=== PATIENT | female | born 1960 | race Two or more races ===

== ENCOUNTER 2024-09-27 07:01 | Inpatient (IN) | payer BC, OTHER ==
[~2024-09-27] VITALS: Ht 149.9 cm; Wt 56.8 kg
[2024-09-27] MEDS: MORPHINE SULFATE 4 MG/ML SYR/VIAL IV ONE ×2 (07:45→10:33)
[2024-09-27] MEDS: ONDANSETRON HCL 4 MG/2 ML VIAL IV ONE (07:45)
--- NOTE | 2024-09-27 07:54 | ED.PDOC ---
History of Present Illness HPI Comments 64-year-old female brought in by EMS presents with a chief complaint of right leg pain s/p mechanical fall. Patient states that she had a mechanical fall x 4 days ago and has been sitting on her couch since, patient thought that the pain would subside. Patient is not able to bear weight on her leg/hip. Patient was given 100mcg of Fentanyl en route by EMS. Chief Complaint: Lower Extremity Time Seen by MD: 07:28 Primary Care Provider: UNKNOWN Reviewed Notes: Medications, Allergies Allergies: Coded Allergies: Cephalexin (Verified Allergy, Mild, 09/27/24) Sulfa Antibiotics (Verified Allergy, Mild, 09/27/24) Information Source: Patient, Emergency Med Personnel Mode of Arrival: EMS Severity: Moderate Timing: Days Duration: Since onset Prehospital treatment: Motor Expert, Pain Meds Past Medical History PAST MEDICAL HISTORY: Denies Surgical History: Denies all surgeries BEHAVIORAL ANALYST History: No Pertinent BEHAVIORAL ANALYST History Family History Family History: Reviewed,noncontributory to illness Social History Smoker: Non-Smoker Alcohol: Denies ETOH Use Drugs: Denies Drug Use Constitutional: denies: chills, diaphoresis, fatigue, fever, malaise, sweats, weakness, others EENTM: denies: blurred vision, double vision, ear bleeding, ear discharge, ear drainage, ear pain, ear ringing, eye pain, eye redness, hearing loss, mouth pain, mouth swelling, nasal discharge, nose bleeding, nose congestion, nose pain, photophobia, tearing, throat pain, throat swelling, voice changes, others Respiratory: denies: cough, hemoptysis, orthopnea, SOB at rest, shortness of breath, SOB with excertion, stridor, wheezing, others Cardiovascular: denies: chest pain, dizzy spells, diaphoresis, Dyspnea on exertion, edema, irregular heart beat, left arm pain, lightheadedness, palpitations, PND, syncope, others Gastrointestinal: denies: abdomen distended, abdominal pain, blood streaked bowels, constipated, diarrhea, dysphagia, difficulty swallowing, hematemesis, melena, nausea, poor appetite, poor fluid intake, rectal bleeding, rectal pain, vomiting, others Genitourinary: denies: abnormal vagina bleeding, burning, dyspareunia, dysuria, flank pain, frequency, hematuria, incontinence, pain, , vagina discharge, urgency, others Neurological: denies: dizziness, fainting, headache, left sided numbness, left sided weakness, numbness, paresthesia, pre-existing deficit, right sided numbness, right sided weakness, seizure, speech problems, tingling, tremors, weakness, others Musculoskeletal: reports: joint pain, muscle pain; denies: back pain, gout, joint swelling, muscle stiffness, neck pain, others Integumetry: denies: bruises, change in color, change in hair/nails, dryness, laceration, lesions, lumps, rash, wounds, others Allergic/Immunocompromised: denies: Difficulty Healing, Frequent Infections, Hives, Itching, others Hematologic/Lymphatic: denies: anemia, blood clots, easy bleeding, easy bruising, swollen glands, others Endocrine: denies: excessive hunger, excessive sweating, excessive thirst, excessive urination, flushing, intolerance to cold, intolerance to heat, unexplained weight gain, unexplained weight loss, others Psychiatric: denies: anxiety, bipolar disorder, depression, hopeless, panic disorder, schizophrenia, sleepless, suicidal, others All Other Systems: Reviewed and Negative Physical Exam General Appearance: No Apparent Distress, Normal HEENT: Normal ENT Inspection, Pharynx Normal, TMs Normal Neck: Full Range of Motion, Non-Tender, Normal, Normal Inspection Respiratory: Chest Non-Tender, Lungs Clear, No Accessory Muscle Use, No Respiratory Distress, Normal Breath Sounds Cardiovascular: No Edema, No JVD, No Murmur, No Gallop, Normal Peripheral Pulses, Regular Rate/Rhythm Breast Exam: Deferred Gastrointestinal: No Organomegaly, Non Tender, No Pulsatile Mass, Normal Bowel Sounds, Soft Genitalia: Deferred Pelvic: Deferred Rectal: Deferred Extremities: No calf tenderness, Normal capillary refill, Normal inspection, Normal range of motion, Non-tender, No pedal edema Musculoskeletal : Apperance: Normal Neurologic: Alert, control systems eng II-XII nml as Tested, No Motor Deficits, Normal Affect, Normal Mood, No Sensory Deficits Cerebellar Function: Normal Reflexes: Normal Skin: Dry, Normal Color, Warm Lymphatic: No Adenopathy Was a procedure done? Was a procedure done?: No Differential Dx Considerations may include: Right femur fracture right to fib fracture X-Ray, Labs, Meds, VS Vital Signs Date Time Temp Pulse Resp B/P (MAP) Pulse Ox O2 Delivery O2 Flow Rate FiO2 09/27/24 07:45 67 20 167/63 09/27/24 07:19 99.9 88 14 149/90 (109) 100 99.9 Current Medications Medications (Trade) Dose Ordered Sig/Nerissa Route Start Time Stop Time Status Last Admin Morphine Sulfate 4 mg ONCE ONCE IV 09/27/24 07:45 09/27/24 07:46 DC 09/27/24 07:45 Ondansetron HCl (Zofran) 4 mg ONCE ONCE IV 09/27/24 07:45 09/27/24 07:46 DC 09/27/24 07:45 Time of 1ST Reevaluation: 07:58 Reevaluation 1ST: Unchanged Patient Education/Counseling: Diagnosis, Treatment, Need For Follow Up Family Education/Counseling: No Family Present Departure 1 Departure Time of Disposition: 09:45 (Patient found to have a right femur fracture. We will consult Orthopedics and admit for expert consultation.) Impression: Primary Impression: Right femoral fracture Qualified Codes: S72.24XA - Nondisplaced subtrochanteric fracture of right femur, initial encounter for closed fracture Disposition: ADMITTED INPATIENT Admit to: Med Surg Condition: Serious Critical Care Note Critical Care Time?: No Stability Stability form required: No Heart Score Heart Score: Heart Score Response (Comments) Value History N/A 0 EKG N/A 0 Age N/A 0 Risk Factors N/A 0 Troponin N/A 0 Total 0 I personally scribed for ARTURO ZAMORA MD ([email or web address]) on 09/27/24 at 07:54. Electronically submitted by Jerrod Seo ([email or web address]). ARTURO ZAMORA MD Sep 27, 2024 07:54
--- NOTE | 2024-09-27 09:29 | DVH ---
CLINICAL INDICATION: fall, trauma, pain TECHNIQUE: XY R FEMUR XRAY, XY PELVIS AP Comparison: None FINDINGS/IMPRESSION: : Minimally displaced right proximal femoral intertrochanteric fracture. Severe degenerative changes of bilateral hips.
--- NOTE | 2024-09-27 09:37 | DVH ---
PROCEDURE: Right tibia/fibula radiographs. INDICATION: Fall TECHNIQUE: 3 views of the right tibia/fibula were obtained. COMPARISON: None FINDINGS: There is no evidence of fracture or dislocation. Joint spaces are maintained. The soft tis sues are unremarkable. IMPRESSION: 1. No fracture or dislocation.
[2024-09-27 10:26] LABS: Basophils # (auto) 0.1 10 ^3/uL (0-0.2); Eosinophils # (auto) 0.2 10 ^3/uL (0-0.8); Eosinophils % (auto) 2.5 % (0.0-7.0); Hematocrit 39.5 % (36.0-46.0); Hemoglobin 13.6 g/dL (12.2-16.2); Lymphocytes # (auto) 1.4 10 ^3/uL (0.4-5.4); Lymphocytes % (auto) 20.7 % (10.0-50.0); Mean Corpuscular Hemoglobin 33.3 pg (28.0-32.0); Mean Corpuscular Hgb Conc. 34.4 g/dL (32.0-36.0); Mean Corpuscular Volume 96.9 fL (80.0-100.0); Monocytes # (auto) 0.4 10 ^3/uL (0-1.3); Monocytes % (auto) 5.9 % (0.0-12.0); Neutrophils # (auto) 4.6 10 ^3/uL (1.6-8.6); Neutrophils % (auto) 69.9 % (37.0-80.0); Platelet Count (auto) 434 10^3/uL (140-450); Red Blood Cells 4.07 10^6/uL (4.0-5.20); Red Cell Distribution Width 14.1 % (11.8-14.3); White Blood Cell 6.5 10^3/uL (4.4-10.8)
[2024-09-27 10:35] LABS: Sodium 143 mmol/L (136-145)
[2024-09-27 10:36] LABS: Anion Gap 9 (5-15); Calcium 9.5 mg/dL (8.7-10.4); Carbon Dioxide 26 mmol/L (20-31)
--- NOTE | 2024-09-27 10:40 | DVH ---
CHEST RADIOGRAPH Indication: Pain Technique: Single frontal view of the chest was obtained COMPARISON: None FINDINGS: Lines and Tubes: None Lungs: Clear Pleura: No effusion. No pneumothorax. Cardiomediastinal contours: Unremarkable Bones: Multiple chronic left rib fractures. IMPRESSION: No acute disease.
[2024-09-27 10:41] LABS: BUN/Creatinine Ratio 17.3 (10.0-20.0); Blood Urea Nitrogen 9 mg/dL (9-23); Chloride 108 mmol/L (98-107); Glucose 92 mg/dL (74-106); Potassium 3.2 mmol/L (3.5-5.1)
[2024-09-27 10:44] LABS: Partial Thromboplastin Time 29.6 SEC (24.5-34.5); Prothrombin Time 10.6 sec (9.3-11.8)
[2024-09-27] MEDS ORDERED: NITROGLYCERIN 0.4 MG SL TAB SL PRN (10:45)
[2024-09-27] MEDS ORDERED: MORPHINE SULFATE INJ 2 MG/ml SYRG IV PRN (10:45)
[2024-09-27] MEDS ORDERED: ACETAMINOPHEN 325 MG TAB PO PRN (10:45)
--- NOTE | 2024-09-27 11:02 | DVHHP2 ---
Admitting Diagnosis: Right Intertrochanteric Fracture History of Present Illness HPI Patient is 64F with PMH of tobacco dependence, oxygen use at bedtime, COPD, HTN who presents due to right hip pain after a fall 4 days prior. Patient did not seek medical attention at the time thinking her "pain would go away." She presents today due to persistent pain. Xray imaging notes right intertrochanteric fracture. Patient admitted for orthopedic evaluation. Past Medical History Cardiac: HTN Pulmonary: COPD Review of Systems Constitutional: No symptom reported Pulmonary/Respiratory: No symptom reported Cardiovascular: No symptom reported Gastrointestinal: No symptom reported H&P Exam Vital Signs Vital Signs Date Time Temp Pulse Resp B/P (MAP) Pulse Ox O2 Delivery O2 Flow Rate FiO2 09/27/24 07:45 67 20 167/63 09/27/24 07:19 99.9 100 99.9 General Appeara: Well developed Pulmonary/Respiratory: Normal inspection, Normal breath sounds Cardiovascular/Chest: Normal inspection, Regular rate Hip exam: Asymmetry Labs/Xrays Labs Test 09/27/24 09:57 Range/Units White Blood Count 6.5 4.4-10.8 10^3/uL Red Blood Count 4.07 4.0-5.20 10^6/uL Hemoglobin 13.6 12.2-16.2 g/dL Hematocrit 39.5 36.0-46.0 % Mean Corpuscular Volume 96.9 80.0-100.0 fL Mean Corpuscular Hemoglobin 33.3 H 28.0-32.0 pg Mean Corpuscular Hemoglobin Concent 34.4 32.0-36.0 g/dL Red Cell Distribution Width 14.1 11.8-14.3 % Platelet Count 434 140-450 10^3/uL Mean Platelet Volume 7.5 6.9-10.8 fL Neutrophils (%) (Auto) 69.9 37.0-80.0 % Lymphocytes (%) (Auto) 20.7 10.0-50.0 % Monocytes (%) (Auto) 5.9 0.0-12.0 % Eosinophils (%) (Auto) 2.5 0.0-7.0 % Basophils (%) (Auto) 1.0 0.0-2.0 % Neutrophils # (Auto) 4.6 1.6-8.6 10 ^3/uL Lymphocytes # (Auto) 1.4 0.4-5.4 10 ^3/uL Monocytes # (Auto) 0.4 0-1.3 10 ^3/uL Eosinophils # (Auto) 0.2 0-0.8 10 ^3/uL Basophils # (Auto) 0.1 0-0.2 10 ^3/uL Nucleated Red Blood Cells 0.0 % Prothrombin Time 10.6 9.3-11.8 sec Prothrombin Time INR 1.00 0.9-1.15 Activated Partial Thromboplast Time 29.6 24.5-34.5 SEC Sodium Level 143 136-145 mmol/L Potassium Level 3.2 L 3.5-5.1 mmol/L Chloride Level 108 H 98-107 mmol/L Carbon Dioxide Level 26 20-31 mmol/L Anion Gap 9 5-15 Blood Urea Nitrogen 9 9-23 mg/dL Creatinine 0.52 L 0.550-1.02 mg/dL Glomerular Filtration Rate Calc 102 >90 mL/min BUN/Creatinine Ratio 17.3 10.0-20.0 Serum Glucose 92 74-106 mg/dL Calcium Level 9.5 8.7-10.4 mg/dL Assessment/Plan Primary Diagnosis 1. Right Intertrochanteric Fracture 2' Diagnosis/Co-morbidities 2. History of COPD 3. Chronic Oxygen Dependence Plan -Admit to med surg -Orthopedics consulted, Dr. Mckeon -Pain medications as listed in MAR -NPO pending possible ORIF today -Nasal cannula with goal pulse ox>90% -Electrolytes repleted -Full Code Plan discussed with: Patient SILVIA FARR Sep 27, 2024 11:02
[2024-09-27] MEDS: POTASSIUM EFFERVESENT TAB 25 MEQ PO ONE (11:50)
[2024-09-27] MEDS: ONDANSETRON HCL 4 MG/2 ML VIAL IV PRN (11:50)
[2024-09-27] MEDS: MORPHINE SULFATE INJ 2 MG/ml SYRG IV PRN (11:51)
[2024-09-27] MEDS: HYDROcodone-ACET 5/325MG TAB PO PRN (13:48)
--- NOTE | 2024-09-27 16:20 | DVHINCON2 ---
Date Seen: Sep 27, 2024 Referring Physician TONY Tomlinson Reason for Consultation Pre-op History of Present Illness This is a 64-year-old female who presented to the emergency room via EMS with a chief complaint of right lower extremity pain. The patient reports a mechanical fall injury where she tripped and fell over a branch when she was feeding her dog and landing onto her right side four days ago. She has been diagnosed with a right femur fracture with orthopedic team requesting a cardiac risk stratification prior to surgical intervention. The patient denies any chest pain, palpitations, SOB, dizziness, or syncopal events. States she is functional and able to ambulate without assistance. Denies exertional angina or dyspnea on exertion. Reports a history of a myocardial infarction at 23 y.o. without any invasive cardiac work-up but advised to decrease stress levels. She does not follow-up with a geological engineering teacher. Significant medical history includes hypertension, peripheral neuropathy, dyslipidemia, unspecified arthritis, COPD with oxygen dependence, and sciatica. Past Medical History Past medical history reviewed. No other significant than mentioned above. Past Surgical History Tonsillectomy Cholecystectomy Bilateral toes, unspecified Exploratory abdominal surgery Family History Family history reviewed. Not significant for CV disease. Social History Denies the use of illicit drugs, alcohol, or tobacco use. Allergies: Coded Allergies: Cephalexin (Verified Allergy, Mild, 09/27/24) Sulfa Antibiotics (Verified Allergy, Mild, 09/27/24) Home Meds Reported Medications Gabapentin (Gabapentin) 300 Mg Cap, 1 CAP PO TID 09/28/24 Carvedilol (Carvedilol) 3.125 Mg Tab, 1 TAB PO BID 09/28/24 Home Meds Home medications reviewed. Current Medications Current Medications Medications (Trade) Dose Ordered Sig/Nerissa Route PRN Reason Start Time Stop Time Status Last Admin Acetaminophen (Tylenol Tablet) 325 mg Q4HP PRN PO MILD PAIN (1-3 PAIN SCALE) 09/27/24 10:45 Acetaminophen/ Hydrocodone Bitart ([place] 5/325MG Tab) 1 tab Q4HP PRN PO MODERATE PAIN (4-6 PAIN SCALE) 09/27/24 10:45 09/27/24 13:48 Temazepam (Restoril) 15 mg QHSP PRN PO FOR INSOMNIA 09/27/24 10:45 Ondansetron HCl (Zofran) 4 mg Q4HP PRN IV NAUSEA / VOMITING 09/27/24 10:45 09/27/24 11:50 Morphine Sulfate 2 mg Q4HPRN PRN IV SEVERE PAIN (7-10 PAIN SCALE) 09/27/24 10:45 09/27/24 11:51 Nitroglycerin (Ntrostat Sublingual) 0.4 mg Q5MINP PRN SL FOR CHEST PAIN 09/27/24 10:45 Morphine Sulfate 2 mg Q30M PRN IV FOR CHEST PAIN 09/27/24 10:45 Review of Systems Constitutional: No symptom reported Ears, Nose, & Throat: No symptom reported Eyes: No symptom reported Neurological: No symptoms reported Pulmonary/Respiratory: No symptom reported Cardiovascular: No symptom reported Gastrointestinal: No symptom reported Genitourinary: No symptom reported Musculoskeletal: RLE pain Skin: No symptom reported Psychiatric: No symptom reported Endocrine: No symptom reported Hemotologic/Lymphatic: No symptom reported Vital Signs Vital Signs Date Time Temp Pulse Resp B/P (MAP) Pulse Ox O2 Delivery O2 Flow Rate FiO2 09/27/24 13:49 97.7 79 18 164/66 (98) 99 97.7 09/27/24 12:07 Nasal Cannula* 2 28 Physical Exam General Appearance: Cooperative. Well developed. Well nourished. In no acute distress Head Exam: Normal inspection Neck Exam: Normal inspection. Non-tender. Normal alignment Pulmonary/Respiratory: Chest non-tender. Clear bilateral breath sounds Cardiovascular/Chest: Regular rate and rhythm. S1, S2. NSR. No murmurs. No JVD. Peripheral Pulses: 2+ Radial (R). 2+ Radial (L). 2+ Pedal (R). 2+ Pedal (L) Abdominal Exam: Normal bowel sounds. Soft. Nontender. No hepatospenomegaly. No masses Ankle Exam: Negative ankle edema Lower extremities: Negative lower extremity edema. Right lower extremity shortening and external rotation Neuro/Mental Status: A&O x4. Coherent Thoughts/Psych: Normal thought pattern. Crying in pain Appearance: In no acute distress Skin Exam: Normal inspection. Normal color. Warm. Dry Labs/Diagnostic Data Labs Test 09/27/24 09:57 Range/Units White Blood Count 6.5 4.4-10.8 10^3/uL Red Blood Count 4.07 4.0-5.20 10^6/uL Hemoglobin 13.6 12.2-16.2 g/dL Hematocrit 39.5 36.0-46.0 % Mean Corpuscular Volume 96.9 80.0-100.0 fL Mean Corpuscular Hemoglobin 33.3 H 28.0-32.0 pg Mean Corpuscular Hemoglobin Concent 34.4 32.0-36.0 g/dL Red Cell Distribution Width 14.1 11.8-14.3 % Platelet Count 434 140-450 10^3/uL Mean Platelet Volume 7.5 6.9-10.8 fL Neutrophils (%) (Auto) 69.9 37.0-80.0 % Lymphocytes (%) (Auto) 20.7 10.0-50.0 % Monocytes (%) (Auto) 5.9 0.0-12.0 % Eosinophils (%) (Auto) 2.5 0.0-7.0 % Basophils (%) (Auto) 1.0 0.0-2.0 % Neutrophils # (Auto) 4.6 1.6-8.6 10 ^3/uL Lymphocytes # (Auto) 1.4 0.4-5.4 10 ^3/uL Monocytes # (Auto) 0.4 0-1.3 10 ^3/uL Eosinophils # (Auto) 0.2 0-0.8 10 ^3/uL Basophils # (Auto) 0.1 0-0.2 10 ^3/uL Nucleated Red Blood Cells 0.0 % Prothrombin Time 10.6 9.3-11.8 sec Prothrombin Time INR 1.00 0.9-1.15 Activated Partial Thromboplast Time 29.6 24.5-34.5 SEC Sodium Level 143 136-145 mmol/L Potassium Level 3.2 L 3.5-5.1 mmol/L Chloride Level 108 H 98-107 mmol/L Carbon Dioxide Level 26 20-31 mmol/L Anion Gap 9 5-15 Blood Urea Nitrogen 9 9-23 mg/dL Creatinine 0.52 L 0.550-1.02 mg/dL Glomerular Filtration Rate Calc 102 >90 mL/min BUN/Creatinine Ratio 17.3 10.0-20.0 Serum Glucose 92 74-106 mg/dL Calcium Level 9.5 8.7-10.4 mg/dL Assessment Preprocedural cardiovascular examination Right intertrochanteric fracture COPD with oxygen dependence Hypertension Dyslipidemia Thyroid disease Hypokalemia Plan/Recommendation (Dr. Campbell) Preliminary echocardiogram revealed an EF of 55-60% without evidence of aortic or mitral valve stenosis. Revised cardiac risk index (Alexandr criteria): Class I at 3.9% risk of , PR, or cardiac arrest. Patient has no underlying history of congestive heart failure, coronary artery disease, and has an optimal functional capacity. Per Cardiology standpoint, the patient is at an acceptable-risk for moderate-risk surgery. There is no additional cardiac workup indicated prior to surgery. Thank you for allowing us to care for this patient. Please call with any questions or concerns. This medical document was created using an electronic medical record system with voice recognition software and computerized dictation system. Although this document has been carefully reviewed, there might still be some phonetic and typographical errors. Occasional wrong-word or ``sound-alike substitutions may have occurred due to the inherent limitations of voice recognition software. These areas are purely typographical due to imperfections of the software programs and do not reflect any compromise in the patient's medical care. Please read the chart carefully and recognize, using context, where these substitutions have occurred. Plan discussed with: Patient, Other NYHA Physical activity limitations: NA Date of Service: Sep 27, 2024 Billing Provider: SANTIAGO CHRISTOPHER Cardiology Common Codes: 57647-[id number] INP/OBS CARE (High) SANTIAGO CHRISTOPHER Sep 27, 2024 16:20
--- NOTE | 2024-09-27 17:55 | ECG ---
[facility] Test Date: 2024-09-27 Test Time: 17:54:13 Pat Name: REA HINDS Department: ED Room: 0280 Gender: F Acoustic Warfare Analyst: ROSE MARIE : 1960 Requested By: ARTURO ZAMORA Order Number: [id number] Reading MD: Roderick Barr Measurements Intervals [place] Rate: 58 P: 86 NH: 143 QRS: 71 QRSD: 109 T: 73 QT: 461 QTc: 453 Interpretive Statements Sinus rhythm Probable left atrial enlargement Nonspecific T abnrm, anterolateral leads Minimal ST elevation, lateral leads Artifact in lead(s) I,II,aVR,aVL,aVF Electronically Signed On 09-28-2024 17:42:05 PDT by Roderick Barr Please click the below link to view image of tracing.
--- NOTE | 2024-09-27 18:12 | DVHINCON2 ---
Consult Note Consult Consult Note Referring Physician: ER Physician Reason for Consult: Right hip pain post-fall concern for fracture --- HISTORY OF PRESENT ILLNESS: The patient is an 64-year-old female who presented to the emergency department after a ground-level fall onto her right side. She reports inability to bear weight on the right leg since the incident. No head trauma, loss of consciousness, or other injuries were reported. X-rays obtained in the ER revealed a non-displaced right intertrochanteric femur fracture. Orthopedic service was consulted for further management. --- PAST MEDICAL HISTORY: Myocardial infarction (CT) Chronic obstructive pulmonary disease (COPD) Asthma Tobacco use: ~5 cigarettes/day --- PHYSICAL EXAMINATION: General: Alert and oriented x3, appears in mild distress due to pain Right Hip: Tenderness over the greater trochanter and right groin No active range of motion due to pain No shortening or external rotation noted Neurovascular: Distal pulses palpable, capillary refill <2 sec, sensation intact distally Other Joints: No additional pain or deformity noted --- IMAGING: X-ray: Non-displaced right intertrochanteric femur fracture --- PLAN: Proceed with surgical management: Open reduction and internal fixation (ORIF) with cephalomedullary nail ([employer] system planned) NPO after midnight Admit to hospital and coordinate with: Medical team for pre-op optimization Cardiology for surgical clearance due to cardiac history Consent for procedure obtained today [employer] retail field representative contacted for implant availability Patient counseled extensively about: Surgical plan Potential risks: infection, bleeding, DVT, implant failure, anesthesia risks Expected postoperative course --- DISPOSITION: Patient to be admited under hospitalist for surgery tommorow,Surgery scheduled for tomorrow afternoon with Dr. Villafuerte Plan discussed with: Patient, Other (bedside nurse) Visit Coding Surgery Date of Service if different f: Sep 27, 2024 Billing Provider: HANNAH CRANE Surgery Visit Codes: 01138 - INP CONSULT <55 MIN HANNAH CRANE Sep 27, 2024 18:12
[2024-09-28] MEDS: TEMAZEPAM 15 MG CAP PO PRN (00:41)
[2024-09-28 03:31] VITALS: BP 172/74; PULSE 74; RESP 19; TEMP 96.2; O2SAT 74
[2024-09-28 05:00] VITALS: BP 179/103; PULSE 85; RESP 19; TEMP 96.6; O2SAT 94
[2024-09-28] MEDS ORDERED: GABA-1250 PO (05:57)
[2024-09-28] MEDS ORDERED: CARV3.1240 PO (05:57)
[2024-09-28 08:20] VITALS: BP 149/72; PULSE 97; RESP 19; TEMP 98.1; O2SAT 94
--- NOTE | 2024-09-28 11:41 | DVHPN2 ---
Progress Note - Dictate Date Seen: Sep 28, 2024 Medical Necessity Reason Pt with a Central, PICC or Fol: No Subjective Patient's pain controlled vital signs Vital Sign Date Time Temp Pulse Resp B/P (MAP) Pulse Ox O2 Delivery O2 Flow Rate FiO2 09/28/24 09:10 97 19 149/72 09/28/24 08:20 98.1 94 98.1 09/28/24 04:18 Nasal Cannula* 2 28 Total Intake and Output 09/27/24 09/27/24 09/28/24 15:00 23:00 07:00 Intake Total 0 ml Output Total 1300 ml Balance -1300 ml medications Current Medications Medications Dose Ordered Sig/Nerissa Route Start Time Stop Time Status Last Admin Dose Admin Acetaminophen 325 mg Q4HP PRN PO 09/27/24 10:45 Acetaminophen/ Hydrocodone Bitart 1 tab Q4HP PRN PO 09/27/24 10:45 09/27/24 19:54 1 TAB Temazepam 15 mg QHSP PRN PO 09/27/24 10:45 09/28/24 00:41 15 MG Ondansetron HCl 4 mg Q4HP PRN IV 09/27/24 10:45 09/27/24 16:06 4 MG Morphine Sulfate 2 mg Q4HPRN PRN IV 09/27/24 10:45 09/28/24 09:10 2 MG Nitroglycerin 0.4 mg Q5MINP PRN SL 09/27/24 10:45 Morphine Sulfate 2 mg Q30M PRN IV 09/27/24 10:45 objective General appearance: No acute distress Respiratory: Lungs clear to auscultation. No wheezing, crackles Cardiovascular: Regular rate and rhythm, no murmurs. No edema Abdomen: Soft, nondistended, nontender, bowel sounds present MSK: Shortened right leg Neuro: Alert, no neurological deficits Psych: Appropriate mood and affect. laboratory and microbiology Laboratory Tests 09/27/24 09:57 Test 09/27/24 09:57 Range/Units Serum Glucose 92 74-106 mg/dL Assessment/Plan 1. Right Intertrochanteric Fracture 2' Diagnosis/Co-morbidities 2. History of COPD 3. Chronic Oxygen Dependence Plan -Orthopedics consulted, Dr. Mckeon -Pain medications as listed in MAR -NPO pending ORIF today -Nasal cannula with goal pulse ox>90% -Cardiac clearance completed -SS consulted for SNF placement for PT -Electrolytes repleted -Full Code Plan discussed with: Patient CHIKASILVIA Bourgeois DO Sep 28, 2024 11:41
--- NOTE | 2024-09-28 12:15 | DVHSR ---
APPROVED REPORT EXAM: Two-dimensional and M-mode echocardiogram with Doppler and color Doppler. Blood Pressure: 160/63 mmHg INDICATION Pre-Op RISK FACTORS Height: 5'4", Weight: 150 DIMENSIONS LVDd4.7 (3.8-5.7cm)LA (2D)3.3 (1.9-4.0cm)Aortic Root2.7 (2.0-3.7cm) LVDs3.5 (2.5-4.0cm)LA (MM) (1.9-4.0cm)Aortic Cusp Exc1.6 (1.5-2.0cm) EF (%) 55.0 (55-70%)Rt. Atrium3.5 (1.9-4.0cm)Asc. Aorta cm IVSd0.8 (0.7-1.1cm)RV (D)3.4 (1.8-2.4cm) PWd0.9 (0.7-1.1cm) Mitral Valve MitralMitral Stenosis E wave0.75m/sMV Mean GR.mmHg A wave0.94m/sMV Peak GR.mmHg E/A ratio0.82D MVAcm2 DECEL [id number] 1/2 Timems Aortic Valve Aortic ValveAortic Stenosis V11.28m/Brenda Mean GR.3mmHg V21.20m/Brenda Peak GR.6mmHg LVOT Diameter1.8 (1.8-2.4cm)Doppler AVA2.71cm2 Pulmonic Valve V20.90m/s Other Information Technically limited study due to body habitus, patient lying flat. Conclusion lvef 65% normal RV function normal atria no severe valve abnormalities noted
[2024-09-28 12:39] VITALS: BP_SYST 158; BP_SYST 171; BP_DIAS 64; BP_DIAS 87; PULSE 65; RESP 16; TEMP 96.8; O2SAT 92
--- NOTE | 2024-09-28 13:56 | DVHDS2 ---
Discharge Summary Date of Admission Sep 27, 2024 at 10:41 Date of Discharge: Sep 29, 2024 Labs/Diagnostic Data: Laboratory Results Test 09/27/24 09:57 White Blood Count 6.5 10^3/uL (4.4-10.8) Red Blood Count 4.07 10^6/uL (4.0-5.20) Hemoglobin 13.6 g/dL (12.2-16.2) Hematocrit 39.5 % (36.0-46.0) Mean Corpuscular Volume 96.9 fL (80.0-100.0) Mean Corpuscular Hemoglobin 33.3 pg (28.0-32.0) Mean Corpuscular Hemoglobin Concent 34.4 g/dL (32.0-36.0) Red Cell Distribution Width 14.1 % (11.8-14.3) Platelet Count 434 10^3/uL (140-450) Mean Platelet Volume 7.5 fL (6.9-10.8) Neutrophils (%) (Auto) 69.9 % (37.0-80.0) Lymphocytes (%) (Auto) 20.7 % (10.0-50.0) Monocytes (%) (Auto) 5.9 % (0.0-12.0) Eosinophils (%) (Auto) 2.5 % (0.0-7.0) Basophils (%) (Auto) 1.0 % (0.0-2.0) Neutrophils # (Auto) 4.6 10 ^3/uL (1.6-8.6) Lymphocytes # (Auto) 1.4 10 ^3/uL (0.4-5.4) Monocytes # (Auto) 0.4 10 ^3/uL (0-1.3) Eosinophils # (Auto) 0.2 10 ^3/uL (0-0.8) Basophils # (Auto) 0.1 10 ^3/uL (0-0.2) Nucleated Red Blood Cells 0.0 % Prothrombin Time 10.6 sec (9.3-11.8) Prothrombin Time INR 1.00 (0.9-1.15) Activated Partial Thromboplast Time 29.6 SEC (24.5-34.5) Sodium Level 143 mmol/L (136-145) Potassium Level 3.2 mmol/L (3.5-5.1) Chloride Level 108 mmol/L (98-107) Carbon Dioxide Level 26 mmol/L (20-31) Anion Gap 9 (5-15) Blood Urea Nitrogen 9 mg/dL (9-23) Creatinine 0.52 mg/dL (0.550-1.02) Glomerular Filtration Rate Calc 102 mL/min (>90) BUN/Creatinine Ratio 17.3 (10.0-20.0) Serum Glucose 92 mg/dL (74-106) Calcium Level 9.5 mg/dL (8.7-10.4) Other Laboratory Tests 09/27/24 09:57 Brief Hx & Hospital Course: Patient is 64F with PMH of tobacco dependence, oxygen use at bedtime, COPD, HTN who presents due to right hip pain after a fall 4 days prior. Patient did not seek medical attention at the time thinking her "pain would go away." She presents today due to persistent pain. Xray imaging notes right intertrochanteric fracture. Patient admitted for orthopedic evaluation. Patient underwent ORIF of the right femoral neck. Patient was monitored overnight. She subsequently had physical therapy done. She was able to ambulate with minimal assist with walker. FWW ordered for the patient. Patient insisted on returning home Home health ordered with PT. Patient is to follow-up with orthopedic surgery in 10-14 days. She is cleared for DC by orthopedics. [facility] case management to arrange follow-up appointments. Condition at Discharge: Good Final Diagnosis/Problems List 1. Right Intertrochanteric Fracture Secondary Diagnosis: 2. COPD 3. Chronic Respiratory Failure on 2L Discharge Disposition: Home with Health Services Discharge Statement: "Patient was advised to return to the ER or call 911 if any headaches, dizziness, shortness of breath, chest pain, abdominal pain, bleeding, fevers, or worsening of medical condition. Patient was counseled about treatment plan, medications, possible side effects, patientverbalized understanding. All questions were answered to the best of my ability. This discharge took greater then 30 minutes in planning, reviewing documentation, counseling the patient, and discussing with other team members." ASSESSMENT ASSESSMENT Assessment SILVIA FARR DO Sep 28, 2024 13:56
--- NOTE | 2024-09-28 15:13 | ECG ---
[facility] Test Date: 2024-09-28 Test Time: 09:33:28 Pat Name: REA HINDS Department: Respiratoy Room: 0280 B Gender: F Station Supervisor: : [id number] Requested By: SANTIAGO CHRISTOPHER Order Number: [id number] Reading MD: Roderick Barr Measurements Intervals Superior Rate: 94 P: 80 CA: 132 QRS: 88 QRSD: 101 T: 87 QT: 426 QTc: 533 Interpretive Statements Sinus rhythm Borderline right axis deviation Nonspecific T abnrm, anterolateral leads Prolonged QT interval Electronically Signed On 09-28-2024 17:23:54 PDT by Roderick Barr Please click the below link to view image of tracing.
[2024-09-28] MEDS ORDERED: MIDAZOLAM HCL 2MG/2ML 2ml VIAL (1mg/ml) ONE ×2 (16:54→16:55)
[2024-09-28] MEDS ORDERED: PROPOFOL 10 MG/ML 20 ML IV ONE (16:54)
[2024-09-28] MEDS ORDERED: fentaNYL CITRATE 100 MCG/2 ML VL ONE (16:54)
[2024-09-28] MEDS ORDERED: KETAMINE 50mg/ML 1ml syringe ONE (16:54)
[2024-09-28] MEDS: ceFAZolin 1GM/50ML 100 ML IV ONE (17:00)
[2024-09-28] MEDS ORDERED: ESMOLOL HCL 10 ML IV ONE (17:12)
[2024-09-28 18:45] VITALS: PULSE 92; RESP 12; O2SAT 99
[2024-09-28] MEDS ORDERED: ONDANSETRON HCL 4 MG/2 ML VIAL IV PRN (18:45)
[2024-09-28] MEDS ORDERED: HYDROmorphone HCL 2 MG/ML VL/or syr IV PRN (18:45)
[2024-09-28] MEDS ORDERED: MORPHINE SULFATE 4 MG/ML SYR/VIAL IV PRN (18:45)
[2024-09-28] MEDS ORDERED: ePHEDrine SULFATE 50 MG/ML AMP IV PRN (18:45)
[2024-09-28] MEDS ORDERED: MORPHINE SULFATE INJ 2 MG/ml SYRG IV PRN (18:45)
[2024-09-28] MEDS ORDERED: MIDAZOLAM HCL 2MG/2ML 2ml VIAL (1mg/ml) IV PRN (18:45)
[2024-09-28] MEDS ORDERED: ACETAMINOPHEN 325 MG TAB PO PRN (18:45)
[2024-09-28] MEDS ORDERED: hydrALAZINE HCL 20 MG/ML VL IV PRN (18:45)
[2024-09-28] MEDS ORDERED: NITROGLYCERIN 0.4 MG SL TAB SL PRN (18:45)
[2024-09-28] MEDS: ONDANSETRON HCL 4 MG/2 ML VIAL IV ONE (19:08)
--- NOTE | 2024-09-28 19:55 | DVH ---
CLINICAL INDICATION: RT HIP TROCH NAIL TECHNIQUE: 18 radiographic views of the right hip were obtained. Comparison: None FINDINGS/IMPRESSION: 18 images of an open reduction internal fixation of a right hip fracture Total fluoro time 99.4 seconds .
--- NOTE | 2024-09-28 20:00 | DVH ---
C-ARM FLUOROSCOPY: PROCEDURE: ORIF of the femur FLUOROSCOPY TIME: 99.4 sec DAP: 11.35 mgy FINDINGS: Spot intraoperative C arm radiographs demonstrating ORIF of the femur. IMPRESSION: Please refer to surgical report for detailed findings.
--- NOTE | 2024-09-28 20:11 | DVHOP ---
DATE OF SURGERY: 09/28/2024 PREOPERATIVE DIAGNOSIS: Right hip intertrochanteric fracture. POSTOPERATIVE DIAGNOSIS: Right hip intertrochanteric fracture with subcapital extension. PROCEDURE PERFORMED: Right hip closed reduction and trochanteric nailing. ANESTHESIA: Spinal. ANESTHESIOLOGIST: Dr. Garcia. EXPERIMENTAL ROCKET SLED MECHANIC: Sandra Reich PA-C. BLOOD LOSS: 50 mL. COMPLICATIONS: None. IMPLANTS USED: Arthrex AOS cephalomedullary nail, 125 degrees, 9 mm with 85 mm cephalic screw and 34 mm distal screw. INDICATION FOR PROCEDURE: The patient presented to the Emergency Room with a hip fracture. Clinical and radiological evaluation demonstrated minimally displaced intertrochanteric fracture. Nonoperative and operative management options were discussed. Surgery in the form of closed versus open reduction of the intertrochanteric fracture with intramedullary nailing was discussed. Benefits, risks, and treatment alternatives were discussed. Specific complications of the surgery such as neurovascular injury, infection, arthrofibrosis, loss of limb or life were discussed. The patient decided to proceed with surgical options. PROCEDURE IN DETAIL: The patient was identified in the preoperative holding area and the surgical site was marked. The consent was verified. She was brought into the operating room and placed supine on the operating table. Spinal anesthesia was administered. She was then placed on the operating table. Her well leg was placed in a well leg novoa. The operative leg was placed in a boot and secured with a Coban. Gentle traction was applied and the C-arm was brought in to assess the quality of the reduction. Good reduction was noted. The hip was in slight varus. The extremity was prepped and draped in the usual sterile manner. A small incision was made over the greater trochanter and proximal to it after marking out the axis of the femur in both the AP and lateral planes. The IT band was incised. A self-retaining retractor was applied. Next, a guide pin was inserted from the tip of the trochanter down to the intramedullary canal. Next, a reamer was used to open up the trochanter. Next, AP and lateral images were obtained to confirm the trajectory of the reamer and the guide pin. This was found to be satisfactory. A nail was opened up and then inserted into the intramedullary canal. Excellent fit was noted and positioning was noted. Next, a guide pin was inserted from the lateral aspect of the trochanter into the neck and the head. This was adjusted as needed to try and be either center-center, AP and lateral, or slightly inferior and posterior. It was noted to be slightly inferior with a 125-degree angle and central on the lateral view. The depth was noted to be approximately 85 mm. A reamer was inserted. Next, the screw was inserted for excellent compression. Multiple images were obtained to confirm. The screw is not intraarticular and this was considered to be satisfactory. Oblique views were also obtained, 10-degree AP and 10-degree lateral to confirm the trajectory of the screw. Good compression was achieved with the proprietary system. The distal screw was also inserted. This was a bicortical screw. Excellent fixation was noted. AP and lateral views were obtained. Irrigation was given. The iliotibial band was closed with #2 Ethibond in a tzyesj-wk-nezje manner. The deep layer was closed with #0 Vicryl and 2-0 Vicryl and the skin was closed with kofi. A sterile dressing was applied. The patient was taken to the recovery after putting sterile dressing and transferring to her gurney. DISPOSITION: Good, the patient was extubated and taken to the recovery room. PLAN: The patient is medically sick and has COPD and unable to ambulate long distances. She can start weightbearing tomorrow, but will need a walker due to her severe rheumatoid arthritis and multiple deformities of the hand. I will transition her into independent walking in 4-6 weeks. MD ALONDRA Ya/SHANTANU TID: [id number] RECEIPT: [id number]
[2024-09-28 21:27] VITALS: BP 131/68; PULSE 89; RESP 14; TEMP 98.4; O2SAT 97
[2024-09-28] MEDS: LACTATED RINGER'S 1,000 ML IV SCH (21:38)
[2024-09-28] MEDS: DOCUSATE SOD 100 MG CAP PO SCH (22:00)
[2024-09-29] VITALS (8 sets, daily range): BP systolic 100–134; BP diastolic 59–67; PULSE 56–120; RESP 16–20; TEMP 97.9–98.3; O2SAT 94–100
[2024-09-29] MEDS: HYDROcodone-ACET 5/325MG TAB PO PRN (01:24)
[2024-09-29] MEDS: HYDROmorphone HCL 2 MG/ML VL/or syr IV PRN (03:56)
[2024-09-29] MEDS: HYDROcodone-ACET 10/325MG TAB PO PRN (06:25)
[2024-09-29 06:41] LABS: Basophils # (auto) 0 10 ^3/uL (0-0.2); Basophils % (auto) 0.1 % (0.0-2.0); Eosinophils # (auto) 0 10 ^3/uL (0-0.8); Hematocrit 37.7 % (36.0-46.0); Hemoglobin 12.7 g/dL (12.2-16.2); Lymphocytes # (auto) 0.5 10 ^3/uL (0.4-5.4); Lymphocytes % (auto) 4.4 % (10.0-50.0); Mean Corpuscular Hemoglobin 32.8 pg (28.0-32.0); Mean Corpuscular Hgb Conc. 33.8 g/dL (32.0-36.0); Monocytes # (auto) 0.2 10 ^3/uL (0-1.3); Monocytes % (auto) 2.1 % (0.0-12.0); Neutrophils # (auto) 10.5 10 ^3/uL (1.6-8.6); Neutrophils % (auto) 93.4 % (37.0-80.0); Platelet Count (auto) 433 10^3/uL (140-450); Red Blood Cells 3.88 10^6/uL (4.0-5.20); Red Cell Distribution Width 13.5 % (11.8-14.3); White Blood Cell 11.3 10^3/uL (4.4-10.8)
[2024-09-29 06:54] LABS: Anion Gap 8 (5-15); Carbon Dioxide 31 mmol/L (20-31); Chloride 100 mmol/L (98-107); Sodium 139 mmol/L (136-145)
[2024-09-29 06:59] LABS: Calcium 8.7 mg/dL (8.7-10.4)
[2024-09-29 07:00] LABS: BUN/Creatinine Ratio 20.8 (10.0-20.0); Blood Urea Nitrogen 10 mg/dL (9-23)
[2024-09-29 07:09] LABS: Glucose 151 mg/dL (74-106); Potassium 3.4 mmol/L (3.5-5.1)
[2024-09-29] MEDS: TETRACAINE 1% INJ 2 ML VIAL IJ ONE (07:26)
[2024-09-29] MEDS: ONDANSETRON HCL 4 MG/2 ML VIAL IV ONE (07:27)
[2024-09-29] MEDS: ONDANSETRON HCL 4 MG/2 ML VIAL ONE (07:27)
[2024-09-29] MEDS: POTASSIUM EFFERVESENT TAB 25 MEQ PO ONE (10:00)
--- NOTE | 2024-09-29 12:32 | DVHPN2 ---
Progress Note - Dictate Date Seen: Sep 29, 2024 Medical Necessity Reason Pt with a Central, PICC or Fol: No Subjective The patient was lying comfortably in bed during my evaluation reports some postoperative hip pain as pain well managed with the help of pain medication and greatly improved since surgery. Patient reports that she was able to carefully follow up with the help of physical therapy and a walker but was only able to get to her door and back to her bed per reports that she felt stable but was just moving slow. The patient was otherwise feeling well denying any other complaints or concerns during my evaluation. vital signs Vital Sign Date Time Temp Pulse Resp B/P (MAP) Pulse Ox O2 Delivery O2 Flow Rate FiO2 09/29/24 08:52 97.9 73 16 134/59 (84) 100 97.9 09/29/24 08:00 Nasal Cannula* 2 28 Total Intake and Output 09/28/24 09/28/24 09/29/24 15:00 23:00 07:00 Intake Total 100 ml 100 ml 780 ml Output Total 1050 ml 1500 ml Balance 100 ml -950 ml -720 ml medications Current Medications Medications Dose Ordered Sig/Nerissa Route Start Time Stop Time Status Last Admin Dose Admin Temazepam 15 mg QHSP PRN PO 09/27/24 10:45 09/28/24 00:41 15 MG Lactated Ringer's 1,000 ml @ 100 mls/hr Q10H IV 09/28/24 18:45 09/28/24 21:38 100 MLS/HR Acetaminophen 650 mg Q6HP PRN PO 09/28/24 18:45 Acetaminophen/ Hydrocodone Bitart 1 tab Q4HP PRN PO 09/28/24 18:45 09/29/24 01:24 1 TAB Hydromorphone HCl 1 mg Q2HP PRN IV 09/28/24 18:45 09/29/24 03:56 1 MG Ondansetron HCl 4 mg Q6HP PRN IV 09/28/24 18:45 Docusate Sodium 100 mg Q12HR PO 09/28/24 22:00 Acetaminophen/ Hydrocodone Bitart 1 tab Q4HP PRN PO 09/28/24 18:45 09/29/24 11:25 1 TAB Nitroglycerin 0.4 mg Q5MINP PRN SL 09/28/24 18:45 Morphine Sulfate 2 mg Q30M PRN IV 09/28/24 18:45 objective A&O x4 in no acute distress Hip range of motion grossly limited with pain on movement Aquacel dressing clean, dry, and intact No distal edema or calf tenderness to palpation Neurovascularly intact with cap refill less than 2 seconds laboratory and microbiology Laboratory Tests 09/29/24 04:31 Test 09/29/24 04:31 Range/Units Serum Glucose 151 H 74-106 mg/dL Assessment/Plan Continue current management as well as pain control and physical therapy and advised patient to remain weight-bearing as tolerated with the assistance of a walker. I spoke with the patient and her nurse who reports that the patient has orders for discharge to a [facility] facility to which the patient requested to go home instead as she reports she has equipment such as a hospital bed, walker, and family at home to help her. I informed the patient and the nurse that if the patient is able to get up and walk with the help of physical therapy and is able to get down to the nurse's station and back to her room from an orthopedic standpoint she may be discharged home. I advised the patient to maintain her dressings clean, dry, and intact and to call our office to schedule her 1st postoperative appointment in 10-14 days from the date of surgery. She understood and agreed. Thank you for allowing us to participate in the care of your patient. Plan discussed with: Patient HECTOR CHAND Sep 29, 2024 12:32
[2024-09-29] MEDS ORDERED: HYDR-4798 PO (13:54)
[2024-09-29] MEDS ORDERED: NALO4SPR2 (13:56)
[2024-09-30] VITALS (8 sets, daily range): BP systolic 119–147; BP diastolic 49–81; PULSE 57–94; RESP 16–20; TEMP 96.7–98.2; O2SAT 92–100
[2024-09-30 07:40] LABS: Hematocrit 32.7 % (36.0-46.0); Hemoglobin 11.1 g/dL (12.2-16.2)
[2024-10-01 01:00] VITALS: BP 128/52; PULSE 68; RESP 20; TEMP 98; O2SAT 99
[2024-10-01 05:00] VITALS: BP 128/59; PULSE 76; RESP 20; TEMP 97.7; O2SAT 100
[2024-10-01 07:15] LABS: Hematocrit 31.7 % (36.0-46.0); Hemoglobin 10.8 g/dL (12.2-16.2)
[2024-10-01 08:00] VITALS: PULSE 58; RESP 16
[2024-10-01] MEDS ORDERED: PHENYLEPHRINE HCL 10 MG/ML VL IV ONE (08:42)
[2024-10-01 09:00] VITALS: BP 130/73; PULSE 63; RESP 16; TEMP 98.2; O2SAT 99
[2024-10-01 12:06] VITALS: PULSE 58
== END 2024-10-01 14:00 | disposition home health service (06) | DRG 481 ==
LOC: EDBD 07:01 → ER 07:01 → OVERFLOW 10:41 → WEST WING 09-28 03:25
PROVIDERS: ADMIT Student in an Organized Health Care Education/Training Program; ATTEND Student in an Organized Health Care Education/Training Program
PROC: 0QS636Z Reposition Right Upper Femur with Intramedullary Internal Fixation Device, Percutaneous Approach (ICD-10-PCS; principal; 2024-09-28 16:59)
DX: S72.141A Displaced intertrochanteric fracture of right femur, initial encounter for closed fracture (principal); J96.10 Chronic respiratory failure, unspecified whether with hypoxia or hypercapnia; J44.89 Other specified chronic obstructive pulmonary disease; I10 Essential (primary) hypertension; Z99.81 Dependence on supplemental oxygen; E87.6 Hypokalemia; E78.5 Hyperlipidemia, unspecified; E07.9 Disorder of thyroid, unspecified; G62.9 Polyneuropathy, unspecified; Z87.891 Personal history of nicotine dependence; I25.2 Old myocardial infarction; Z88.2 Allergy status to sulfonamides; Z88.1 Allergy status to other antibiotic agents; W01.0XXA Fall on same level from slipping, tripping and stumbling without subsequent striking against object, initial encounter; Y93.89 Activity, other specified; Y92.89 Other specified places as the place of occurrence of the external cause; Y99.8 Other external cause status
CPT/HCPCS: 36415; 71045; 72170; 73502; 73590; 76000; 80048; 85014; 85018; 85025; 85610; 85730; 86850; 86900; 86901; 93005; 93306; 96374; 96375; 97110; 97116; 97163; 97530; C1713; G0378; J2250; J2405; J2704